=== PATIENT | female | born 1990 | race Caucasian/White ===

== ENCOUNTER → 2019-12-05 11:51 | Outpatient (CLI) | payer BC, SELFPAY ==
[2019-12-05 11:57] LABS: Adenovirus,PCR Not Detected (NotDetected); Bordetella Pertussis Not Detected (NotDetected); Chlamydophila Pneumoniae, PCR Not Detected (NotDetected); Coronavirus 229E Not Detected (NotDetected); Coronavirus NL63 Not Detected (NotDetected); Coronavirus OC43 Not Detected (NotDetected); Coronovirus HKU1,PCR Not Detected (NotDetected); Human Metapneumovirus Not Detected (NotDetected); Influenza A, PCR Not Detected (NotDetected); Influenza AH1, 2009 Not Detected (NotDetected); Influenza AH1, PCR Not Detected (NotDetected); Influenza AH3,PCR Not Detected (NotDetected); Influenza B, PCR Not Detected (NotDetected); Mycoplasma Pneumoniae, PCR Not Detected (NotDetected); Parainfluenza 1, PCR Not Detected (NotDetected); Parainfluenza 2, PCR Not Detected (NotDetected); Parainfluenza 3, PCR Not Detected (NotDetected); Parainfluenza 4, PCR Not Detected (NotDetected); Respiratory Syncytial Virus Not Detected (NotDetected); Rhinovirus/Enterovirus Not Detected (NotDetected)
== END ==
PROVIDERS: Visit Provider Internal Medicine Adolescent Medicine
DX: J02.9 Acute pharyngitis, unspecified (principal); R50.9 Fever, unspecified
CPT/HCPCS: 87070; 87077; 87186; 87486; 87581; 87633; 87798

== ENCOUNTER 2020-08-12 19:45 | Emergency (ER) | payer OTHER, BC, SELFPAY ==
[2020-08-12 19:55] VITALS: BP 129/79; PULSE 98; RESP 20; O2SAT 100; BMI 24.0
--- NOTE | 2020-08-12 20:06 | PC.NURSE ---
PATIENT SENT TO ER PER MONTEZ STANFORD APRN AT THIS TIME FOR FURTHER EVALUATION. REPORTS GIVEN TO Anthony RINCON RN
[2020-08-12 20:11] VITALS: BP 177/106; PULSE 93; RESP 16; TEMP 36.7; O2SAT 99; BMI 23.3
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
[2020-08-12 20:23] LABS: Microscopic, Urine URINE MICROSCOPIC (MICROSCOPIC)
[2020-08-12 20:25] LABS: Appearance,Urine CLEAR (Clear); Bilirubin,Urine Negative (Negative); Blood, Urine Negative (Negative); Color,Urine YELLOW (Yellow); Glucose,Urine (UA) Negative (Negative); Ketones,Urine Negative (Negative); Leukocyte Esterase,Urine Negative (Negative); Nitrate,Urine Negative (Negative); Protein,Urine Negative (Negative); Urobilinogen,Urine 0.2 EU/dl (0.2)
[2020-08-12 20:29] LABS: Urine Pregnancy, HCG Qual. Negative (Negative)
[2020-08-12 20:46] LABS: Bacteria,Urine 1+ /lpf; RBC,Urine Occasional #/hpf (0-3)
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
[2020-08-12 21:59] VITALS: BP 131/87; PULSE 89; RESP 16; TEMP 36.7; O2SAT 98
== END 2020-08-12 22:01 | disposition home or self-care (01) ==
LOC: UTC 19:54 → ER 20:07
PROVIDERS: Emergency Provider Emergency Medicine; PCP Internal Medicine Adolescent Medicine
DX: S16.1XXA Strain of muscle, fascia and tendon at neck level, initial encounter (principal); S29.019A Strain of muscle and tendon of unspecified wall of thorax, initial encounter; V43.52XA Car driver injured in collision with other type car in traffic accident, initial encounter; Y92.414 Local residential or business street as the place of occurrence of the external cause
CPT/HCPCS: 70450; 71046; 72125; 72128; 72131; 72170; 81001; 81025; 99282

== ENCOUNTER → 2022-03-13 10:54 | Outpatient (CLI) | payer BC, SELFPAY | LOC: RAD 10:57 → RT 10:58 | PROVIDERS: PCP Internal Medicine Adolescent Medicine; Visit Provider Internal Medicine Adolescent Medicine | DX: R00.0 Tachycardia, unspecified (principal) | CPT/HCPCS: 93225; 93226 ==

== ENCOUNTER 2024-06-11 12:15 | Emergency (ER) | payer BC, SELFPAY ==
--- OUTSIDE RECORDS SUMMARY | 2024-06-11 12:20 | XMS_ITS | Patient Health Record ---
Author Organization [facility] Address [address] [place] [address] Care Team Providers Care State Archivist Name Role Phone Chelsi Saldaña Primary Care Provider [phone] Allergies No Known Allergies Reason For Referral No Information Medications Medication SIG (Take, Route, Fr equency, Duration) Notes Start Date End Date Status amoxicillin 500 mg 1 cap(s) orally ever y 12 hours for 10 day(s) 09/09/2022 Active ZyrTEC 10 mg 1 tab(s) orally once a day Active Immunizations Vaccine Route Administration Date Status Comme nts PPD ID Intradermal 06/24/2015 Administered Problems Problem Type SNOMED Code ICD Code Onset Dates Problem Status W/U Status Risk Notes Problem 325721109 Seasonal allergies (J30.2) Active confirmed Problem 95255100 Irregular menses (N92.6) Active confirmed Plan Of Treatment Pending Test Test Name Order Date Rapid Strep 12/05/2019 Ultrasound : Gallbladder 03/23/2019 Rapid Flu, A 12/05/2019 Rapid Flu, B 12/05/2019 M-Diarrhea Panel, PCR 03/23/2019 Insurance Providers Payer Name Payer Address Payer Phone Subscriber Number Group Number Insured Name Patient Relationship to Insured Coverage Start Date Coverage End Date [employer] [address] [place] [address] [id number] Twyla Vazquez Self - patient is the insured Medical (General) History Medical History History ICD Code Pneumonia 2015 Congenital deafness L ear, 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
--- NOTE | 2024-06-11 12:21 | XR_ITS ---
PROCEDURE INFORMATION: Exam: XR Left Forearm Exam date and time: 06/11/2024 12:37 PM Age: 33 years old Clinical indication: Injury or trauma; Fall; Blunt trauma (contusions or hematomas); Arm, lower; Left TECHNIQUE: Imaging protocol: Radiologic exam of the left forearm. Views: 2 views. COMPARISON: CR XR HAND LT MIN 3V 06/11/2024 12:34 PM FINDINGS: Bones/joints: There is a nondisplaced transverse fracture through the distal left radial metaphysis. The left ulna is intact. The proximal and mid radius is intact. There is normal alignment of the left elbow. Soft tissues: No radiopaque foreign body or gas in the soft tissues. IMPRESSION: Nondisplaced transverse fracture through the distal left radial metaphysis.
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
[2024-06-11 12:55] VITALS: BP 158/97; PULSE 72; RESP 20; TEMP 36.8; O2SAT 100; BMI 29.6
--- NOTE | 2024-06-11 13:09 | EXP.UTC ---
Discharge Plan Disposition Patient Disposition: Home, Self-Care Condition: Good Prescriptions Prescriptions: New ibuprofen [IBU] 800 mg tablet 800 mg PO TIDP PRN (Reason: Moderate Pain) Qty: 20 0RF Referrals Follow up/Referrals: Bill Boo DO [Staff Physician] - See instructions (Call office in the morning for appointment) Julian Trotter MD [Primary Care Provider] - See instructions Clinical Impressions Clinical Impression: Fracture of wrist Qualifiers: Encounter type: initial encounter Fracture type: closed Laterality: left Qualified Code(s): S62.102A - Fracture of unspecified carpal bone, left wrist, initial encounter for closed fracture Instructions Patient Instructions: How to Use a Sling, DI for Wrist Fracture, How To Perform RICE (Rest, Ice, Compress, Elevate) Print Language Print Language: Romanian Discharge ED Provider: Jeannie Delgadillo [facility] [place] H[place] General Stated complaint: AO fall 06/11 @1115, left wrist pain Mode of Arrival: Ambulatory Source of Information: Patient Limitations: No Limitations Time Seen by Provider: 06/11/24 13:09 Description of Symptoms (Recalled from Triage Doc. by RN): PATIENT C/O INJURY TO LEFT WRIST AFTER FALLING DOWN SOME STAIRS TODAY HEENT Symptoms (Recalled from RN notes): No Resp Symptoms (Recalled from RN notes): No Skin Symptoms (Recalled from RN notes): No MS Symptoms (Recalled from RN notes): Yes Functional Status (Recalled from RN notes): WNL History of Present Illness Provider Complaint: Patient states she was at home and was coming down her steps at home when she slipped and fell and not sure if she landed on her left wrist or hit it on something but now having pain and swelling in her wrist and pain with movement Related Data Previous Rx's ?Medication ?Instructions ?Recorded ibuprofen 800 mg tablet (IBU) 800 mg PO TIDP PRN Moderate Pain 06/11/24 #20 tabs Allergies Allergy/AdvReac Type Severity Reaction Status Date / Time No Known Allergies Allergy Verified 11/18/18 18:24 Worker's Comp Is this a Worker's Comp case?: No [facility] Disclaimer: The information contained in this section may have been updated after the patient was seen, as this information can be updated by other users. Social History Smoking Status: Unknown if ever smoked alcohol intake: never current occupational status: other Travel in the last 8 weeks: None ROS Obtained: Yes All systems reviewed & no additional complaints except as documented and Yes Systems reviewed as appropriate & no additional complaints except as documented Constitutional Constitutional: Reports system reviewed and no additional complaints, except as documented and Reports as per HPI ENT Ears, Nose, Mouth, and Throat: Reports system reviewed and no additional complaints, except as documented and Reports as per HPI Cardiovascular Cardiovascular: Reports system reviewed and no additional complaints, except as documented and Reports as per HPI Respiratory Respiratory: Reports system reviewed and no additional complaints, except as documented and Reports as per HPI Gastrointestinal Gastrointestingal: Reports system reviewed and no additional complaints, except as documented and as per HPI Musculoskeletal Musculoskeletal: Reports system reviewed and no additional complaints, except as documented, Reports as per HPI and Reports other Comments: Pain and swelling in her left wrist after falling Physical Exam General General appearance: alert and in no apparent distress ENT ENT exam: Present mucous membranes moist Respiratory Respiratory exam: Present normal lung sounds bilaterally; Absent respiratory distress or wheezes Cardiovascular Cardiovascular exam: Present regular rate, normal rhythm and normal heart sounds Expanded Upper Extremity Exam Left: Forearm/Wrist exam: Present tenderness, swelling and ecchymosis L/R Arms Top View: 1. swelling and bruising noted, denies numbness, able to move fingers easily Neurological Exam Neurological exam: Present alert, oriented X3 and normal gait Medical Decision Making Kenneth Inquiry Pt receiving controlled substance: No Kenneth was queried for this patient: No Vital Signs: 06/11/24 12:55 Temperature 98.2 F Temperature Source Oral Pulse Rate [Right Brachial] 72 Respiratory Rate 20 Blood Pressure [Right Arm] 158/97 H Blood Pressure Mean [Right Arm] 117 Blood Pressure Source [Right Arm] Automatic Cuff Blood Pressure Position [Right Arm] Sitting 02 Sat by Pulse Oximetry 100 Oxygen Delivery Method Room Air Orders (Tests/Meds): ORDERS Category Date Time Status Forearm XR left 2 views [XR forearm LT 2V] Stat Exams 06/11/24 12:21 Taken XR hand LT min 3V Stat Exams 06/11/24 12:21 Taken XR wrist LT min 3V Stat Exams 06/11/24 12:21 Taken Radiology Data #1: Image(s): Wrist Image Reviewed: Yes I have reviewed radiologist's interpretation IMPRESSION: Nondisplaced and nonangulated fracture through the distal left radial metaphysis. #2: Image(s): Hand Image Reviewed: Yes I have reviewed radiologist's interpretation IMPRESSION: Nondisplaced transverse fracture through the distal left radial metaphysis. #3: Image(s): Forearm Image Reviewed: Yes I have reviewed radiologist's interpretation IMPRESSION: Nondisplaced transverse fracture through the distal left radial metaphysis. Procedures Orthopedic Splinting/Casting Injury #1: Side: left Upper Extremity Injury Location: forearm and wrist Upper Extremity Immobilizer: sugar tong splint, sling and applied by nurse/dr yancey Post Cast/Splinting Neuro Status: intact and no change Post Cast/Splinting Vasc Status: intact and no change
[2024-06-11] MEDS: IBUPROFEN 400 MG TABLET 800 MG PO (13:21)
[2024-06-11 13:32] LABS: UTC Pregnancy Test, Urine Negative (Negative)
[2024-06-11 13:33] VITALS: BP 158/97; PULSE 72; RESP 20; TEMP 36.8; O2SAT 100
== END 2024-06-11 14:15 | disposition home or self-care (01) ==
PROVIDERS: Emergency Provider Nurse Practitioner; PCP Internal Medicine Adolescent Medicine
DX: S52.502A Unspecified fracture of the lower end of left radius, initial encounter for closed fracture (principal); M25.532 Pain in left wrist; W10.8XXA Fall (on) (from) other stairs and steps, initial encounter
CPT/HCPCS: 73090; 73110; 73130; 81025; 99204; 99212; G0463

== ENCOUNTER 2024-06-19 11:36 | Outpatient (CLI) | payer BC, SELFPAY ==
--- NOTE | 2024-06-19 11:40 | XR_ITS ---
FINAL REPORT CLINICAL HISTORY: Left wrist fx, f/u COMPARISON: 06/11/2024 FINDINGS: LEFT WRIST THREE VIEW FINDINGS: Three views show a healing fracture of the distal radius. Bony detail is obscured by a fiberglass cast. No displacement is evident. IMPRESSION: Healing fracture of the distal radius. Reviewed, Interpreted and Dictated by Thuy Donnelly MD Transcribed by Karley Arroyo Authenticated and [facility]
--- NOTE | 2024-06-19 13:11 | XR_ITS ---
FINAL REPORT TECHNIQUE: 6 views of the left forearm. CLINICAL HISTORY: fx f/u COMPARISON: 06/11/2024 FINDINGS: LEFT FOREARM: 2 views of the left forearm were obtained. There is a nondisplaced transverse fracture of the distal radial metaphysis, not as well-seen as on prior exams due to a fiberglass cast which obscures some detail. The joints are intact. There are no soft tissue abnormalities. IMPRESSION: Nondisplaced transverse fracture of the distal radial metaphysis, not as well-seen as on prior exams due to a fiberglass cast. No new bony abnormalities are identified. Reviewed, Interpreted and Dictated by Thuy Donnelly MD Transcribed by Etelvina Westbrook Authenticated and [facility]
== END 2024-06-19 23:59 | disposition home or self-care (01) ==
LOC: RAD 11:37
PROVIDERS: PCP Internal Medicine Adolescent Medicine; Visit Provider Physician Assistant
DX: M25.532 Pain in left wrist (principal); S52.502A Unspecified fracture of the lower end of left radius, initial encounter for closed fracture
CPT/HCPCS: 73110

== ENCOUNTER 2024-07-03 12:23 | Outpatient (CLI) | payer BC, SELFPAY ==
--- NOTE | 2024-07-03 12:26 | XR_ITS ---
FINAL REPORT CLINICAL HISTORY: left wrist Fx FINDINGS: LEFT WRIST Three views of the left wrist were obtained. Overlying cast material obscures detail. There is a nondisplaced, mildly impacted fracture of the distal radial metaphysis. The visualized joint spaces are normally aligned. The soft tissues are unremarkable. IMPRESSION: Mildly impacted fracture of the distal radial metaphysis. Reviewed, Interpreted and Dictated by Napoleon Foster III, MD Transcribed by Irma Crain Authenticated and [facility]
== END 2024-07-03 23:59 | disposition home or self-care (01) ==
LOC: RAD 12:24
PROVIDERS: PCP Internal Medicine Adolescent Medicine; Visit Provider Physician Assistant
DX: M25.532 Pain in left wrist (principal); S62.102A Fracture of unspecified carpal bone, left wrist, initial encounter for closed fracture
CPT/HCPCS: 73110

== ENCOUNTER 2024-07-24 10:20 | Outpatient (CLI) | payer BC, SELFPAY ==
--- NOTE | 2024-07-24 10:24 | XR_ITS ---
PROCEDURE INFORMATION: Exam: XR Left Wrist Exam date and time: 07/24/2024 10:31 AM Age: 33 years old Clinical indication: Condition or disease; Other: FX; Additional info: Left wrist FX TECHNIQUE: Imaging protocol: Radiologic exam of the left wrist. Views: 3 or more views. COMPARISON: CR XR WRIST LT MIN 3V 04/05/2024 12:51 FINDINGS: Bones/joints: Nondisplaced distal radial metaphyseal torus fracture. The bones project in similar position to prior study. There is mild sclerosis along the fracture line suggesting interval healing. Soft tissues: Normal. IMPRESSION: Nondisplaced distal radial metaphyseal torus fracture. The bones project in similar position to prior study. There is mild sclerosis along the fracture line suggesting interval healing. No new fracture.
== END 2024-07-24 23:59 | disposition home or self-care (01) ==
LOC: RAD 10:21
PROVIDERS: PCP Internal Medicine Adolescent Medicine; Visit Provider Orthopaedic Surgery
DX: S62.102A Fracture of unspecified carpal bone, left wrist, initial encounter for closed fracture (principal)
CPT/HCPCS: 73110